=== PATIENT | female | born 1945 | race Caucasian/White ===

== ENCOUNTER 2018-08-09 18:00 | Outpatient (CLI) | payer MEDICARE | END 2018-08-09 18:01 | disposition home or self-care (01) | LOC: SLEEPLAB 18:00 | PROVIDERS: ATTEND Family Medicine | DX: G47.33 Obstructive sleep apnea (adult) (pediatric) (principal); K21.9 Gastro-esophageal reflux disease without esophagitis; I10 Essential (primary) hypertension; R53.83 Other fatigue | CPT/HCPCS: 95806 ==

== ENCOUNTER 2018-09-23 20:30 | Outpatient (CLI) | payer MEDICARE | END 2018-09-23 20:31 | disposition home or self-care (01) | LOC: SLEEPLAB 20:30 | PROVIDERS: ATTEND Family Medicine | DX: G47.33 Obstructive sleep apnea (adult) (pediatric) (principal); R53.83 Other fatigue; K21.9 Gastro-esophageal reflux disease without esophagitis; I10 Essential (primary) hypertension; R06.83 Snoring; G47.10 Hypersomnia, unspecified; Z68.34 Body mass index [BMI] 34.0-34.9, adult | CPT/HCPCS: 95811 ==

== ENCOUNTER 2018-10-10 09:31 | Outpatient (CLI) | payer MEDICARE ==
--- NOTE | 2018-10-10 11:12 | ULT ---
VENOUS DUPLEX STUDY LEFT LOWER EXTREMITY: INDICATIONS: Left lower extremity pain. Palpable area of pain and edema. TECHNIQUE: The deep veins of the left lower extremity are evaluated with color Doppler, spectral analysis, and c ompression. FINDINGS: The deep veins of the left lower extremity show normal blood flow and compression. There is no evide nce of DVT. There are dilated superficial veins seen at the area of palpable concern. No superficial thrombus id entified. IMPRESSION: No evidence of left lower extremity deep venous thrombosis. POS: C
== END 2018-10-10 09:32 | disposition home or self-care (01) ==
LOC: ULT 09:31
PROVIDERS: ATTEND Family Medicine
DX: M79.605 Pain in left leg (principal)

== ENCOUNTER 2019-07-11 11:01 | Outpatient (CLI) | payer MEDICARE ==
--- NOTE | 2019-07-11 11:25 | MMO ---
Bilateral MAMMO Bilat Screen [facility]. CLINICAL HISTORY: Patient is 73 years old and is seen for screening. The patient has no family history of breast cancer. The patient has no personal history of cancer. VIEWS: The views performed were: bilateral craniocaudal; bilateral craniocaudal with tomosynthesis; and bilateral mediolateral oblique with tomosynthesis. FILMS COMPARED: The present examination has been compared to prior imaging studies performed at [facility] on 01/27/2010, 04/27/2011, 07/01/2014 and 05/13/2016. MAMMOGRAM FINDINGS: The breasts are almost entirely fat. There are stable benign appearing calcifications seen in both breasts. There are no suspicious masses, suspicious calcifications, or new areas of architectural distortion. IMPRESSION: THERE IS NO MAMMOGRAPHIC EVIDENCE OF MALIGNANCY. A ROUTINE FOLLOW-UP MAMMOGRAM IN 1 YEAR IS RECOMMENDED. THE RESULTS OF THIS EXAM WERE SENT TO THE PATIENT. ACR BI-RADS Category 2 - Benign finding MAMMOGRAPHY NOTE: 1. A negative mammogram report should not delay a biopsy if a dominant of clinically suspicious mass is present. 2. Approximately 10% to 15% of breast cancers are not detected by mammography. 3. Adenosis and dense breasts may obscure an underlying neoplasm. Reported by: ALEJANDRINA GAN MD Electonically Signed: [id number]
== END 2019-07-11 11:02 | disposition home or self-care (01) ==
LOC: BICMAMMO 11:01
PROVIDERS: ATTEND Family Medicine
DX: Z12.31 Encounter for screening mammogram for malignant neoplasm of breast (principal)
CPT/HCPCS: 77063; 77067

== ENCOUNTER 2019-12-25 22:00 | Observation (INO) | payer MEDICARE ==
[2019-12-25 22:45] LABS: #Basophils 0.1 thou/uL (0.0-0.2); #Eosinphils 0.3 thou/uL (0.0-0.7); #Lymphocytes 3.6 thou/uL (1.20-3.40); #Monocytes 1.3 thou/uL (0.11-0.59); #Neutrophils 7.3 thou/uL (1.40-6.50); %Basophils 1.2 % (0.0-1.0); %Eosinophils 2.2 % (0.0-10.0); %Lymphocytes 28.5 % (21.0-51.0); %Monocytes 10.3 % (0.0-10.0); %Neutrophils 57.8 % (42.0-75.0); Hemoglobin 12.4 g/dL (12.0-16.0); Mean Corpuscular HGB CONC 34.3 g/dL (32.0-36.0); Mean Corpuscular Hemoglobin 30.1 pg (27.0-31.0); Mean Corpuscular Volume 87.8 fL (78.0-98.0); Mean Platelet Volume 9.7 fL (7.4-10.4); Platelet Count 239 thou/uL (130-400); RBC Distribution Width 11.8 % (11.5-14.5); Red Blood Cell (RBC) Count 4.13 mill/uL (4.20-5.40); White Blood Cell (WBC) Count 12.6 thou/uL (4.8-10.8)
[2019-12-25 23:25] LABS: ALT (SGPT) 12 U/L (8-55); AST (SGOT) 18 U/L (5-34); Albumin 4.1 g/dL (3.4-4.8); Alkaline Phosphatase 93 U/L (40-110); Anion Gap 14 mmol/L (10-20); BUN (Urea Nitrogen) 18 mg/dL (9.8-20.1); Bilirubin, Total 0.3 mg/dL (0.2-1.2); Calc. Creatinine Clearance 0 mL/min (70-130); Calcium 9.9 mg/dL (7.8-10.44); Carbon Dioxide 25 mmol/L (23-31); Chloride 99 mmol/L (98-107); Estimated GFR-MDRD 79; Globulin 3.1 g/dL (2.4-3.5); Glucose 97 mg/dL (83-110); Magnesium 1.9 mg/dL (1.6-2.6); Potassium 3.5 mmol/L (3.5-5.1); Protein, Total 7.2 g/dL (6.0-8.3); Sodium 134 mmol/L (136-145)
--- NOTE | 2019-12-25 23:31 | RAD ---
Portable frontal chest radiograph: 12/25/2019 COMPARISON: None HISTORY: Shortness of breath FINDINGS: Rounded increased density overlying the midline lower cardiac silhouette suggests hiatal he rnia. There is atherosclerotic calcification of the aortic arch with no pneumothorax or pleural fluid. No focal consolidation or alveolar edema. IMPRESSION: Portable chest radiograph as above.
[2019-12-26] MEDS ORDERED: Enoxaparin Sodium 80 MG/0.8 ML SYRINGE ONE (00:04)
[2019-12-26] MEDS ORDERED: Ondansetron ODT 4 MG TAB PO PRN (01:54)
[2019-12-26] MEDS ORDERED: Ondansetron PF 4 MG/2 ML Vial IVP PRN (01:54)
[2019-12-26] MEDS ORDERED: Acetaminophen 325 MG TAB PO PRN (01:54)
[2019-12-26] MEDS ORDERED: hydrALAZINE 20 MG/ML VIAL SLOW IVP PRN (01:54)
--- NOTE | 2019-12-26 02:37 | HP ---
PRIMARY CARE PHYSICIAN: Todd Brewer MD CHIEF COMPLAINT: "I felt my heart racing." HISTORY OF PRESENT ILLNESS: Ms. Lundy is a very pleasant 74-year-old female, who has a history of hypertension as well as atrial fibrillation. She has had an ablation at least 20 years ago[address] She sees Dr. Villalba for the atrial fibrillation. She says that she was watching TV and then noticed that her heart was beating faster. It went for longer than 30 minutes and she had been instructed by Dr. Villalba that if it lasted longer than 30 minutes to go to the ER, which she did. She also notes that she has been short of breath lately and sometimes with just minimal movement like moving around in the bed or walking. She denies any orthopnea however, and no PND. She also denies any leg swelling and denies any chest pain. She came to the ER for evaluation and was found to be in atrial fibrillation with rapid ventricular response. She was given a 20 mg bolus of Cardizem and placed on a Cardizem drip and also was given a dose of Lovenox at 1 mg/kg. Currently, she is feeling much better, had her heart rate is in the 60s. REVIEW OF SYSTEMS: All systems were reviewed and are negative except for that mentioned in the history of present illness. PAST MEDICAL HISTORY: Significant for atrial fibrillation, hypertension, and sleep apnea. PAST SURGICAL HISTORY: She had an ablation about 20 years ago. ALLERGIES: NO KNOWN DRUG ALLERGIES. SOCIAL HISTORY: She is . She has 2 children. She is a nonsmoker. She occasionally drinks wine. She would like to be a full code. Either of her children can be her surrogate decision makers. FAMILY HISTORY: No history of any heritable diseases. CURRENT MEDICATIONS: Include; 1. Aspirin, which she takes every other day. If she takes it daily, it causes her to have nosebleeds. 2. She is on valsartan 320 mg daily. 3. Flecainide 100 mg in the a.m. and 150 mg q.p.m. 4. Metoprolol 12.5 mg twice a day. 5. Pravastatin, unknown dose. 6. Maxzide 37.5/25 daily. 7. Eliquis, which she says she only takes p.r.n. 8. Pantoprazole 40 mg daily. PHYSICAL EXAMINATION: GENERAL: She is alert and oriented. She appears to be in no acute distress. She is well developed and well nourished. VITAL SIGNS: Blood pressure was 152/70, heart rate 67, respiratory rate of 24, temperature is 97.7. HEENT: Pupils are equal, round, and reactive. Extraocular muscles are intact. Her sclerae anicteric. Throat, no erythema, no exudates. NECK: No adenopathy. No bruits. LUNGS: Clear to auscultation. There is no wheezing, no rales, no rhonchi. CARDIOVASCULAR: She has a normal S1 and S2. There is no S3 or S4. No murmurs, clicks, or rubs. ABDOMEN: Obese, it is soft, nontender, and nondistended. Positive for bowel sounds. No rebound or guarding. No organomegaly. EXTREMITIES: There is no clubbing, cyanosis. No edema. NEUROLOGIC: Grossly nonfocal. SKIN AND INTEGUMENT: No skin changes. No rash. LABORATORY RESULTS: Her white blood cell count is 12.6, hemoglobin 12.4, hematocrit is 36.3, and platelet count is 239. D-dimer 0.41. Sodium 134, potassium 3.5, chloride is 99, CO2 is 25, BUN of 18, creatinine 0.72, glucose is 97. TSH was 2.3. Chest x-ray, heart size was normal. There was no evidence of any infiltrates or effusions that is by my reading. EKG, atrial fibrillation, the rate was 93. There was some poor R-wave progression in V2. ASSESSMENT: This is a pleasant 74-year-old female, who presents to the emergency room with; 1. Atrial fibrillation and rapid ventricular response. She has a history of paroxysmal atrial fibrillation. She will be admitted, continue the Cardizem drip. Get an echocardiogram and consult Cardiology for further recommendations. She has been given a dose of Lovenox in the ER. We will continue the Lovenox and then likely she can go home on Eliquis. She has been instructed on the proper use of Eliquis, which is daily for stroke prevention as it appears she was under the impression it would stop fast heart rate. 2. Hypertension. We will reconcile and restart her blood pressure medicines. 3. Sleep apnea. She can use her CPAP machine at night if she has at present. Job ID: [id number]
[2019-12-26 05:30] LABS: #Basophils 0.1 thou/uL (0.0-0.2); #Eosinphils 0.3 thou/uL (0.0-0.7); #Lymphocytes 2.8 thou/uL (1.20-3.40); #Monocytes 0.9 thou/uL (0.11-0.59); #Neutrophils 6.5 thou/uL (1.40-6.50); %Basophils 0.5 % (0.0-1.0); %Eosinophils 2.5 % (0.0-10.0); %Lymphocytes 26.2 % (21.0-51.0); %Monocytes 8.9 % (0.0-10.0); %Neutrophils 61.9 % (42.0-75.0); Hemoglobin 12.3 g/dL (12.0-16.0); Mean Corpuscular HGB CONC 34.4 g/dL (32.0-36.0); Mean Corpuscular Hemoglobin 30.4 pg (27.0-31.0); Mean Corpuscular Volume 88.3 fL (78.0-98.0); Mean Platelet Volume 8.7 fL (7.4-10.4); Platelet Count 326 thou/uL (130-400); RBC Distribution Width 11.4 % (11.5-14.5); Red Blood Cell (RBC) Count 4.05 mill/uL (4.20-5.40); White Blood Cell (WBC) Count 10.5 thou/uL (4.8-10.8)
[2019-12-26 05:51] LABS: Anion Gap 12 mmol/L (10-20); BUN (Urea Nitrogen) 15 mg/dL (9.8-20.1); Calc. Creatinine Clearance 95 mL/min (70-130); Calcium 9.6 mg/dL (7.8-10.44); Carbon Dioxide 24 mmol/L (23-31); Chloride 100 mmol/L (98-107); Estimated GFR-MDRD 89; Glucose 95 mg/dL (83-110); Potassium 3.6 mmol/L (3.5-5.1); Sodium 132 mmol/L (136-145)
[2019-12-26] MEDS ORDERED: Triamterene/Hydrochlorothiazide 37.5 mg/25 mg Tablet PO SCH (09:00)
[2019-12-26] MEDS ORDERED: Flecainide 50 MG TAB PO SCH ×2 (09:00→21:00)
[2019-12-26] MEDS ORDERED: Valsartan 80 MG TAB PO SCH (09:00)
[2019-12-26] MEDS ORDERED: Enoxaparin Sodium 80 MG/0.8 ML SYRINGE SC SCH (09:00)
[2019-12-26] MEDS ORDERED: Metoprolol Tartrate 25 MG TAB PO SCH (09:00)
[2019-12-26] MEDS ORDERED: Metoprolol Tartrate 25 MG TAB ONE (10:16)
[2019-12-26 13:34] VITALS: BMI 34.1
[2019-12-26 15:00] VITALS: BP 146/66; TEMP 98.4
--- NOTE | 2019-12-26 16:34 | CON ---
DATE OF CONSULTATION: 12/26/2019 REASON FOR CONSULTATION: Atrial fibrillation. Dr. Romel Villalba is primary noodle press operator. HISTORY OF PRESENT ILLNESS: Ms. Lundy is a 74-year-old woman, who is a patient Dr. Romel Villalba. She has a history of atrial fibrillation status post ablation several years ago. She is currently on flecainide and not on anticoagulation therapy. She recently atrial fibrillation while in the emergency room. She was given IV Cardizem and converted back to sinus. She is currently comfortable without any complaints. PAST MEDICAL HISTORY: Atrial fibrillation, hypertension, and obstructive sleep apnea. ALLERGIES: NONE. SOCIAL HISTORY: She has 2 children. She is currently . No current tobacco or alcohol use. MEDICATIONS: 1. Aspirin. 2. Valsartan. 3. Flecainide. 4. Metoprolol. 5. Pravastatin. 6. Maxzide. 7. Pantoprazole. REVIEW OF SYSTEMS: A 10-point review of systems is reviewed and is as above, otherwise negative. PHYSICAL EXAMINATION: GENERAL: Patient is a pleasant woman, who is in no acute distress. The patient appears their stated age. VITAL SIGNS: Blood pressure 146/66, pulse , and temperature afebrile. NEUROLOGIC: The patient is alert and oriented x3 with no focal neurologic deficits. HEENT: Sclerae without icterus. Mouth has moist mucous membranes with normal pallor. NECK: No JVD. Carotid upstroke brisk. No bruits bilaterally. LUNGS: Clear to auscultation with unlabored respirations. BACK: No scoliosis or kyphosis. CARDIAC: Regular rate and rhythm with normal S1 and S2. No S3 or S4 noted. No significant rubs, murmurs, thrills, or gallops noted throughout the precordium. PMI is not displaced. There is no parasternal heave. ABDOMEN: Soft, nontender, nondistended. No peritoneal signs present. No hepatosplenomegaly. No abnormal striae. EXTREMITIES: 2+ femoral and 2+ dorsalis pedis pulses. No cyanosis, clubbing, or edema. SKIN: No gross abnormalities. PERTINENT LABORATORY DATA: Hemoglobin 12.3. Creatinine 0.65. Troponin negative. TSH is 2.3. Platelet count 326. IMPRESSION: 1. Paroxysmal atrial fibrillation. 2. Hypertension. RECOMMENDATIONS: 1. Continue flecainide. 2. Add Eliquis 5 mg one p.o. b.i.d. 3. Discussed the risks and benefits of proceeding with anticoagulation therapy. I would feel more comfortable proceeding with the above. She can discuss further long-term recommendations on anticoagulation therapy with her primary noodle press operator, Dr. Romel Villalba. Otherwise, I have no further recommendations. The patient is okay for discharge. Job ID: [id number]
--- NOTE | 2019-12-27 13:31 | DIS ---
DATE OF ADMISSION: 12/26/2019 DATE OF DISCHARGE: 12/26/2019 SUPERVISOR POLISHING: Dr. Bedolla, cardiology service. HISTORY OF PRESENT ILLNESS: The patient is a 74-year-old female who was admitted to the hospital with atrial fibrillation. She noticed that her heart was racing. Apparently, she did not have any episodes of atrial fibrillation for quite some time and she follows with Dr. Villalba, polystyrene bead molder in [place]. She had ablation done approximately 20 years ago. She came to the emergency room for evaluation. She was given 20 mg bolus of Cardizem and placed on a Cardizem drip and was given a dose of Lovenox at 1 mg/kg. She converted into normal sinus rhythm. She was placed on full dose of Lovenox 1 mg/kg subcutaneous every 12 hours. She was seen by polystyrene bead molder, who recommended to start apixaban 5 mg twice daily. Apparently, she was told by her polystyrene bead molder Dr. Villalba, if the atrial fibrillation episode lasts longer than 30 minutes, she is supposed to start taking apixaban. It never did, so she never took it and today she is discharged home in good condition. She does not have much complaints to offer. PHYSICAL EXAMINATION: VITAL SIGNS: Blood pressure is 146/66, pulse is 92, respirations 18, temperature is 98.4, pulse oximetry is 99 percent on room air. GENERAL: She is seen and examined before she is discharged. DIET: She is going to stay on heart healthy diet. ACTIVITIES: As tolerated. CURRENT MEDICATIONS: At the time of discharge: 1. Apixaban 5 mg twice daily. 2. Diosmin once daily. 3. Pantoprazole 40 mg once daily. 4. Pravastatin 20 mg at bedtime. 5. Valsartan 320 mg once daily. 6. Flecainide 100 mg daily plus 150 mg at bedtime. 7. Metoprolol tartrate 12.5 mg twice daily. 8. Dyazide 1 tablet once daily. FOLLOWUP: She is going to follow up with Dr. Villalba in the next 1 or 2 weeks. Job ID: [id number]
--- NOTE | 2019-12-29 00:48 | EKG ---
Test Reason : Blood Pressure : / mmHG Vent. Rate : 093 BPM Atrial Rate : 234 BPM P-R Int : 000 ms QRS Dur : 092 ms QT Int : 362 ms P-R-T Axes : 000 018 263 degrees QTc Int : 450 ms Atrial fibrillation Septal infarct , age undetermined Abnormal ECG Confirmed by PJ BAILEY M.D. ([id number]), editor farm journal MERCEDES ALFARO ([id number]) on 12/29/2019 12:48:24 AM Referred By: Confirmed By:PJ BAILEY M.D.
== END 2019-12-26 16:57 | disposition home or self-care (01) ==
LOC: ERS 22:00 → ERHOLD 12-26 00:33 → INTOOBSV 12-26 00:33 → 2SW 12-26 13:23
PROVIDERS: ADMIT Internal Medicine; ATTEND Internal Medicine
DX: I48.0 Paroxysmal atrial fibrillation (principal); I10 Essential (primary) hypertension; G47.33 Obstructive sleep apnea (adult) (pediatric); Z79.82 Long term (current) use of aspirin; Z79.899 Other long term (current) drug therapy; Z79.01 Long term (current) use of anticoagulants; Z99.89 Dependence on other enabling machines and devices
CPT/HCPCS: 71045; 80048; 83735; 83880; 84484; 85025; 85379; 93005; 93306; 96372; 96374; 99285; G0378 ×2; 36415; 80053; 84443; J1650

== ENCOUNTER 2020-10-28 07:36 | Outpatient (CLI) | payer MEDICARE ==
--- NOTE | 2020-10-28 09:55 | RAD ---
4 views of the lumbar spine: 10/28/2020 COMPARISON: None available HISTORY: Lumbar spine pain FINDINGS: Multilevel mid and lower thoracic spine disc space narrowing with lateral and anterior oste ophyte formation noted. The lateral exam demonstrates multilevel disc space narrowing with degenerative endplate change and a nterior osteophyte formation throughout the lumbar spine, most prominent at L1-2, L2-3, L4-5, and L5-S1. On the neutral lateral examination there is retrolisthesis at L1-2 measuring 5-6 mm and at L2-3 measu ring 5-6 mm. On the extension imaging there is retrolisthesis measuring 9 mm at L1-2, 5 mm at L2-3, and 6 mm at L3-4. On flexion imaging there is retrolisthesis measuring 8 mm at L1-2 and 5 mm at L2-3. No acute fracture or dislocation is evident IMPRESSION: Prominent multilevel degenerative change within the lumbar spine as above..
--- NOTE | 2020-10-28 11:46 | MRI ---
MRI LUMBAR SPINE NONCONTRAST: DATE: 10/28/2020. HISTORY: A 74-year-old female with ICD-10: M54.5, lumbar pain (low back pain). COMPARISON: None. FINDINGS: Five lumbar-type vertebrae. Exaggerated lordosis. High-grade disk space narrowing, moderate and sev ere, at every level from T11-12 through L5-S1, with the relative exception of L3-4, where the disk sp adilene narrowing is mild to moderate. Diffuse disk bulges at every level, of varying sizes. 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 Modic type I, II, and III changes various ly at multiple levels. Conus medullaris terminates at lower L1. T12-L1: No high-grade central spinal canal stenosis. Mild bilateral neural foraminal stenosis. L1-2: Retrolisthesis of L1 on L2. Mild central spinal canal stenosis. Severe right and moderate lef t neural foraminal stenosis. L2-3: Retrolisthesis of L2 on L3. In addition to the diffuse disk bulge, there is a broad-based shea tral and bilateral paracentral disk herniation that migrates inferiorly a short distance. Moderate l igamentum flavum thickening. Distortion of spinal canal and thecal sac. Posterior epidural fat pad. Moderate central spinal canal stenosis. Moderate to severe thecal sac stenosis. Moderate to sever e right and severe left neural foraminal stenosis. L3-4: Mild to moderate right and moderate left facet DJD. Mild right and moderate to severe left ne ural foraminal stenosis. Mild central spinal canal stenosis. Posterior epidural fat pad. Moderate thecal sac stenosis. L4-5: Severe bilateral facet DJD. Minimal anterolisthesis of L4 on L5. Prominent diffuse disk bulg e. Moderate ligamentum flavum thickening. Moderate bilateral neural foraminal stenosis, left worse than right. There is distortion due to indentation upon the left L4 nerve root in the left neural fo ramen. Severe central spinal canal stenosis. L5-S1: Large diffuse disk bulge. Moderate to severe bilateral neural foraminal stenosis. Right lat eral recess stenosis with chronic impingement on right S1 nerve root at the right lateral recess by r ight facet osteophyte. Mild to moderate central spinal canal stenosis. IMPRESSION: 1. Severe lumbar spondylosis with multilevel high-grade degenerative disk disease, and lower level h igh-grade facet osteoarthrosis. 2. Multilevel moderate neural foraminal stenosis. The worst neural foraminal stenosis is on the rig ht at L1-2 (severe). 3. High-grade central spinal canal stenosis at L4-5. JN Alexys POS: JIN
== END 2020-10-28 07:37 | disposition home or self-care (01) ==
LOC: BICMRI 07:36
PROVIDERS: ATTEND Nurse Practitioner Family
DX: M54.5 Low back pain (principal); M47.816 Spondylosis without myelopathy or radiculopathy, lumbar region; M51.36 Other intervertebral disc degeneration, lumbar region; M48.061 Spinal stenosis, lumbar region without neurogenic claudication
CPT/HCPCS: 72110; 72148

== ENCOUNTER 2021-01-12 12:18 | Inpatient (IN) | payer MEDICARE ==
[2021-01-12 13:21] LABS: #Eosinphils 0.1 thou/uL (0.0-0.7); #Lymphocytes 1.7 thou/uL (1.20-3.40); #Monocytes 1.6 thou/uL (0.11-0.59); #Neutrophils 14.9 thou/uL (1.40-6.50); %Basophils 0.1 % (0.0-1.0); %Eosinophils 0.3 % (0.0-10.0); %Lymphocytes 9.2 % (21.0-51.0); %Monocytes 8.6 % (0.0-10.0); %Neutrophils 81.8 % (42.0-75.0); Hemoglobin 7.1 g/dL (12.0-16.0); Mean Corpuscular HGB CONC 30.4 g/dL (32.0-36.0); Mean Corpuscular Hemoglobin 19.3 pg (27.0-31.0); Mean Corpuscular Volume 63.5 fL (78.0-98.0); Mean Platelet Volume 8.9 fL (7.4-10.4); Platelet Count 594 thou/uL (130-400); RBC Distribution Width 16.1 % (11.5-14.5); White Blood Cell (WBC) Count 18.2 thou/uL (4.8-10.8)
[2021-01-12 13:43] LABS: ALT (SGPT) 29 U/L (8-55); AST (SGOT) 40 U/L (5-34); Albumin 3.9 g/dL (3.4-4.8); Alkaline Phosphatase 99 U/L (40-110); Anion Gap 17 mmol/L (10-20); BUN (Urea Nitrogen) 22 mg/dL (9.8-20.1); Bilirubin, Total 0.5 mg/dL (0.2-1.2); Calc. Creatinine Clearance 0 mL/min (70-130); Calcium 9.6 mg/dL (7.8-10.44); Carbon Dioxide 22 mmol/L (23-31); Chloride 94 mmol/L (98-107); Globulin 3.8 g/dL (2.4-3.5); Glucose 97 mg/dL (83-110); Potassium 3.4 mmol/L (3.5-5.1); Protein, Total 7.7 g/dL (5.8-8.1); Sodium 130 mmol/L (136-145)
[2021-01-12 13:48] LABS: Anisocytosis SLIGHT = 6-15 cells (100X) (0-5/hpf); Hypochromia SLIGHT = 6-15 cells (100X) (0-5/hpf); MDiff Complete? YES; Microcytosis MODERATE=15-30 cells (100X) (0-5/hpf); Platelet Morphology Comment Appears Increased; Polychromasia MODERATE = 3-4 cells (100X) (0-2/hpf); Reflex for Review?? YES; Target Cells SLIGHT = 2-5 cells (100X) (0-1/hpf); Tear Drops SLIGHT = 2-5 cells (100X) (0-1/hpf)
[2021-01-12 13:50] LABS: INR-International Normal Ratio 1.6; Prothrombin Time 19.2 sec (12.0-14.7)
[2021-01-12] MEDS ORDERED: Acetaminophen 325 MG TAB PO PRN (14:39)
[2021-01-12] MEDS ORDERED: Pantoprazole 40 MG VIAL IVP SCH (14:45)
[2021-01-12 14:48] LABS: Bilirubin Negative (Negative); Blood, Urine Negative (Negative); Clarity Clear (Clear); Glucose, Urine (Dipstick) Normal (Negative); Ketone, Urine Negative (Negative); Leukocyte 500 Leu/uL (Negative); Nitrite Negative (Negative); Protein, Urine (Dipstick) 20 mg/dL (Neg-Trace); RBC/HPF 0-3 HPF (0-3); Specific Gravity, Urine 1.012 (1.002-1.036); Squamous Epithelial 0-3 HPF (0-3); Urobilinogen Normal mg/dL (Less than 2)
[2021-01-12 14:53] LABS: Bacteria/HPF 1+ HPF (None Seen)
[2021-01-12] MEDS ORDERED: Pantoprazole 40 MG VIAL ONE (16:13)
[2021-01-12 17:42] VITALS: BMI 32.4
[2021-01-12] MEDS: HYDROcodone/Acetaminophen 5/325 mg Tablet PO PRN ×2 (17:45→23:35)
[2021-01-12] MEDS ORDERED: Polyethylene Glycol 3350 17 GM Packet PO PRN (18:27)
[2021-01-12] MEDS ORDERED: Potassium Chloride 20 MEQ TAB PO SCH (18:30)
[2021-01-12 18:56] LABS: Iron 21 ug/dL (50-170); Iron Binding Capacity, Total 464 mcg/dL (265-497)
[2021-01-12] MEDS: Pantoprazole 40 MG VIAL IVP SCH (19:50)
[2021-01-12] MEDS ORDERED: Iron, Sodium Ferric Gluconate 250 MG in Sodium Chloride 0.9% 100 ML IVPB SCH (20:00)
[2021-01-12] MEDS ORDERED: Flecainide 50 MG TAB PO SCH (21:00)
[2021-01-12] MEDS ORDERED: Metoprolol Tartrate 25 MG TAB PO SCH (21:00)
[2021-01-12] MEDS: Simvastatin 10 MG TAB PO SCH (22:16)
[2021-01-13 01:45] LABS: SARS-CoV-2 PCR by NAA Not Detected (NotDetected)
[2021-01-13] MEDS ORDERED: hydrALAZINE 20 MG/ML VIAL SLOW IVP SCH (03:45)
[2021-01-13 04:54] LABS: Reticulocyte Count 2.2 % (0.5-1.5)
[2021-01-13 05:05] LABS: Hemoglobin 8.3 g/dL (12.0-16.0); Hypochromia SLIGHT = 6-15 cells (100X) (0-5/hpf); Lymphocytes 14 % (21-51); MDiff Complete? YES; Mean Corpuscular HGB CONC 32.7 g/dL (32.0-36.0); Mean Corpuscular Hemoglobin 21.9 pg (27.0-31.0); Mean Corpuscular Volume 66.9 fL (78.0-98.0); Mean Platelet Volume 8.8 fL (7.4-10.4); Microcytosis MODERATE=15-30 cells (100X) (0-5/hpf); Monocytes 7 % (0-10); Neutrophil 79 % (42-75); Platelet Count 462 thou/uL (130-400); Platelet Morphology Comment Appears Increased; RBC Distribution Width 20.5 % (11.5-14.5); White Blood Cell (WBC) Count 19.8 thou/uL (4.8-10.8)
[2021-01-13 05:25] LABS: ALT (SGPT) 22 U/L (8-55); AST (SGOT) 19 U/L (5-34); Albumin 3.7 g/dL (3.4-4.8); Alkaline Phosphatase 91 U/L (40-110); Anion Gap 15 mmol/L (10-20); BUN (Urea Nitrogen) 17 mg/dL (9.8-20.1); Bilirubin, Total 0.9 mg/dL (0.2-1.2); Calc. Creatinine Clearance 68 mL/min (70-130); Calcium 9.4 mg/dL (7.8-10.44); Carbon Dioxide 21 mmol/L (23-31); Chloride 99 mmol/L (98-107); Globulin 3.1 g/dL (2.4-3.5); Glucose 81 mg/dL (83-110); Potassium 3.6 mmol/L (3.5-5.1); Protein, Total 6.8 g/dL (5.8-8.1); Sodium 131 mmol/L (136-145)
[2021-01-13] MEDS ORDERED: hydrALAZINE 20 MG/ML VIAL SLOW IVP PRN (08:10)
[2021-01-13] MEDS ORDERED: Potassium Chloride 20 MEQ TAB PO SCH (08:30)
[2021-01-13] MEDS: Amlodipine 5 MG TAB PO SCH (09:38)
[2021-01-13] MEDS: Pantoprazole 40 MG VIAL IVP SCH (09:40)
[2021-01-13] MEDS ORDERED: Spironolactone 25 MG TAB PO SCH (13:45)
[2021-01-13] MEDS: HYDROcodone/Acetaminophen 5/325 mg Tablet PO PRN (17:29)
[2021-01-13] MEDS ORDERED: Iron Sucrose Complex 200 MG in Sodium Chloride 0.9% 100 ML IVPB SCH (18:00)
[2021-01-13] MEDS: Simvastatin 10 MG TAB PO SCH (20:28)
[2021-01-14] MEDS: HYDROcodone/Acetaminophen 5/325 mg Tablet PO PRN (01:36)
[2021-01-14 04:38] LABS: Hemoglobin 8.4 g/dL (12.0-16.0); Mean Corpuscular HGB CONC 31.6 g/dL (32.0-36.0); Mean Corpuscular Hemoglobin 21.9 pg (27.0-31.0); Mean Corpuscular Volume 69.4 fL (78.0-98.0); Mean Platelet Volume 9.1 fL (7.4-10.4); Platelet Count 404 thou/uL (130-400); RBC Distribution Width 21.3 % (11.5-14.5); Red Blood Cell (RBC) Count 3.84 mill/uL (4.20-5.40); White Blood Cell (WBC) Count 16.7 thou/uL (4.8-10.8)
[2021-01-14 04:50] LABS: Anion Gap 13 mmol/L (10-20); BUN (Urea Nitrogen) 14 mg/dL (9.8-20.1); Calc. Creatinine Clearance 75 mL/min (70-130); Carbon Dioxide 23 mmol/L (23-31); Chloride 100 mmol/L (98-107); Glucose 84 mg/dL (83-110); Potassium 3.5 mmol/L (3.5-5.1); Sodium 132 mmol/L (136-145)
[2021-01-14 05:09] LABS: Anisocytosis SLIGHT = 6-15 cells (100X) (0-5/hpf); Band 4 % (5-11); Elliptocytes SLIGHT = 2-5 cells (100X) (0-1/hpf); Eosinophils 6 % (0-10); Lymphocytes 17 % (21-51); MDiff Complete? YES; Monocytes 5 % (0-10); Myelocyte 1 % (0-0); Neutrophil 67 % (42-75); Nucleated RBC 1 % (0)
[2021-01-14] MEDS ORDERED: Spironolactone 25 MG TAB PO SCH (08:00)
[2021-01-14] MEDS ORDERED: Potassium Chloride 20 MEQ TAB PO SCH ×2 (08:00→08:30)
[2021-01-14] MEDS: Amlodipine 5 MG TAB PO SCH (09:16)
[2021-01-14 09:56] VITALS: BP 179/77; TEMP 98.1
[2021-01-14] MEDS ORDERED: Triamterene/Hydrochlorothiazide 37.5 mg/25 mg Tablet PO STA (10:06)
== END 2021-01-14 11:57 | disposition home or self-care (01) | DRG 812 ==
LOC: ERS 12:18 → 2NO 14:36
PROVIDERS: ADMIT Internal Medicine; ATTEND Internal Medicine
PROC: 30233N1 Transfusion of Nonautologous Red Blood Cells into Peripheral Vein, Percutaneous Approach (ICD-10-PCS; principal; 2021-01-12)
DX: D50.0 Iron deficiency anemia secondary to blood loss (chronic) (principal); I47.2 Ventricular tachycardia; I50.32 Chronic diastolic (congestive) heart failure; I48.0 Paroxysmal atrial fibrillation; G89.29 Other chronic pain; M54.5 Low back pain; E87.6 Hypokalemia; E66.9 Obesity, unspecified; K44.9 Diaphragmatic hernia without obstruction or gangrene; I10 Essential (primary) hypertension; Z20.822 Contact with and (suspected) exposure to COVID-19; K21.9 Gastro-esophageal reflux disease without esophagitis; G47.30 Sleep apnea, unspecified; Z79.01 Long term (current) use of anticoagulants; Z90.89 Acquired absence of other organs; Z98.51 Tubal ligation status; Z68.32 Body mass index [BMI] 32.0-32.9, adult
CPT/HCPCS: 36415; 36430; 71045; 80048; 80053; 81003; 81015; 82728; 83540; 83550; 83735; 83880; 84100; 84484; 85007; 85025; 85027; 85046; 85060; 85379; 85610; 85730; 86850; 86900; 86901; 87635; 93005; 93010; 96374; C9113; J0360; J1756; J2916; J3490; P9016; U0003; U0005

== ENCOUNTER 2021-01-19 15:36 | Inpatient (IN) | payer MEDICARE ==
[2021-01-19] MEDS ORDERED: Magnesium 2 GM/50 ML BAG (IN WATER) ONE ×2 (16:09→16:12)
[2021-01-19] MEDS ORDERED: Digoxin 0.5 MG/2 ML AMP ONE (16:09)
[2021-01-19 16:11] LABS: Hemoglobin 11.7 g/dL (12.0-16.0); Mean Corpuscular HGB CONC 31.5 g/dL (32.0-36.0); Mean Corpuscular Hemoglobin 23.2 pg (27.0-31.0); Mean Corpuscular Volume 73.5 fL (78.0-98.0); Mean Platelet Volume 10.2 fL (7.4-10.4); Platelet Count 448 thou/uL (130-400); RBC Distribution Width 27.1 % (11.5-14.5); Red Blood Cell (RBC) Count 5.04 mill/uL (4.20-5.40); White Blood Cell (WBC) Count 17.4 thou/uL (4.8-10.8)
[2021-01-19 16:29] LABS: Anisocytosis MODERATE=16-30 cells (100X) (0-5/hpf); Hypochromia SLIGHT = 6-15 cells (100X) (0-5/hpf); Lymphocytes 12 % (21-51); MDiff Complete? YES; Microcytosis SLIGHT = 6-15 cells (100X) (0-5/hpf); Monocytes 5 % (0-10); Neutrophil 83 % (42-75); Ovalocytes SLIGHT = 2-5 cells (100X) (0-1/hpf); Platelet Morphology Comment Appears Increased; Polychromasia SLIGHT = 2-3 cells (100X) (0-2/hpf); Tear Drops SLIGHT = 2-5 cells (100X) (0-1/hpf)
[2021-01-19 16:48] LABS: ALT (SGPT) 23 U/L (8-55); AST (SGOT) 25 U/L (5-34); Albumin 4.2 g/dL (3.4-4.8); Alkaline Phosphatase 96 U/L (40-110); Anion Gap 16 mmol/L (10-20); BUN (Urea Nitrogen) 18 mg/dL (9.8-20.1); Bilirubin, Total 0.6 mg/dL (0.2-1.2); CK (CPK) 31 U/L (29-168); Calc. Creatinine Clearance 0 mL/min (70-130); Calcium 10.4 mg/dL (7.8-10.44); Carbon Dioxide 25 mmol/L (23-31); Chloride 96 mmol/L (98-107); Globulin 3.7 g/dL (2.4-3.5); Glucose 114 mg/dL (83-110); Lipase 19 U/L (8-78); Potassium 3.2 mmol/L (3.5-5.1); Protein, Total 7.9 g/dL (5.8-8.1); Sodium 134 mmol/L (136-145)
[2021-01-19] MEDS ORDERED: Acetaminophen 325 MG TAB PO PRN (18:23)
[2021-01-19] MEDS ORDERED: Acetaminophen 650 MG Suppository PR PRN (18:23)
[2021-01-19 18:39] LABS: Bacteria/HPF None Seen HPF (None Seen); Bilirubin Negative (Negative); Blood, Urine Negative (Negative); Clarity Clear (Clear); Glucose, Urine (Dipstick) Normal (Negative); Ketone, Urine Negative (Negative); Leukocyte 250 Leu/uL (Negative); Nitrite Negative (Negative); Protein, Urine (Dipstick) Negative (Neg-Trace); RBC/HPF 0-3 HPF (0-3); Specific Gravity, Urine 1.011 (1.002-1.036); Squamous Epithelial 0-3 HPF (0-3); Urobilinogen Normal mg/dL (Less than 2); pH, Urine 6.5 (5.0-9.0)
[2021-01-19 19:48] LABS: Troponin I 0.035 ng/mL (< 0.028)
[2021-01-19] MEDS ORDERED: Famotidine 20 MG TAB PO SCH (21:00)
[2021-01-19 21:27] VITALS: BMI 32.0
[2021-01-19 22:57] LABS: Troponin I 0.031 ng/mL (< 0.028)
[2021-01-20] MEDS ORDERED: HYDROcodone/Acetaminophen 10/325 mg Tablet PO PRN (02:34)
[2021-01-20 05:39] LABS: #Eosinphils 0.2 thou/uL (0.0-0.7); #Lymphocytes 2.1 thou/uL (1.20-3.40); #Monocytes 1.2 thou/uL (0.11-0.59); #Neutrophils 10.6 thou/uL (1.40-6.50); %Basophils 0.3 % (0.0-1.0); %Eosinophils 1.6 % (0.0-10.0); %Lymphocytes 14.9 % (21.0-51.0); %Monocytes 8.3 % (0.0-10.0); %Neutrophils 74.9 % (42.0-75.0); Mean Corpuscular HGB CONC 32.3 g/dL (32.0-36.0); Mean Corpuscular Hemoglobin 23.9 pg (27.0-31.0); Mean Corpuscular Volume 74.1 fL (78.0-98.0); Mean Platelet Volume 9.9 fL (7.4-10.4); Platelet Count 361 thou/uL (130-400); RBC Distribution Width 26.8 % (11.5-14.5); Red Blood Cell (RBC) Count 4.18 mill/uL (4.20-5.40); White Blood Cell (WBC) Count 14.1 thou/uL (4.8-10.8)
[2021-01-20 05:48] LABS: Anion Gap 13 mmol/L (10-20); BUN (Urea Nitrogen) 17 mg/dL (9.8-20.1); Calc. Creatinine Clearance 88 mL/min (70-130); Calcium 9.1 mg/dL (7.8-10.44); Carbon Dioxide 26 mmol/L (23-31); Chloride 101 mmol/L (98-107); Glucose 88 mg/dL (83-110); Potassium 3.5 mmol/L (3.5-5.1); Sodium 136 mmol/L (136-145)
[2021-01-20] MEDS ORDERED: Amlodipine 5 MG TAB PO SCH (09:00)
[2021-01-20] MEDS ORDERED: Aspirin 81 mg Enteric Coated Tablet PO SCH (09:00)
[2021-01-20] MEDS ORDERED: Morphine 2 MG/ML VIAL SLOW IVP PRN (10:21)
[2021-01-20] MEDS ORDERED: Morphine 2 MG/ML VIAL SLOW IVP SCH (10:30)
[2021-01-20] MEDS: Ferrous Sulfate 325 MG TAB PO SCH ×2 (11:07→19:32)
[2021-01-20 11:26] VITALS: TEMP 98
[2021-01-20 16:00] VITALS: BP 167/72
[2021-01-20] MEDS ORDERED: Simvastatin 5 MG TAB PO SCH (21:00)
[2021-01-21] MEDS ORDERED: Dronedarone HCl 400 MG TAB PO SCH (08:00)
== END 2021-01-20 18:31 | disposition home or self-care (01) | DRG 309 ==
LOC: ERS 15:36 → ERHOLD 17:15 → 2NO 21:08
PROVIDERS: ADMIT Internal Medicine; ATTEND Internal Medicine
DX: I48.91 Unspecified atrial fibrillation (principal); E87.1 Hypo-osmolality and hyponatremia; E87.8 Other disorders of electrolyte and fluid balance, not elsewhere classified; I10 Essential (primary) hypertension; E66.9 Obesity, unspecified; E87.6 Hypokalemia; Z68.32 Body mass index [BMI] 32.0-32.9, adult
CPT/HCPCS: 36415; 71045; 80048; 81003; 81015; 82550; 83605; 83690; 83735; 83880; 84484; 85025; 93005; 93306; 96365; 96375; J1160; J2270; J3475

== ENCOUNTER 2021-02-15 15:44 | Outpatient (CLI) | payer MEDICARE | END 2021-02-15 15:45 | disposition home or self-care (01) | LOC: BICRAD 15:44 | PROVIDERS: ATTEND Nurse Practitioner Family | DX: M54.2 Cervicalgia (principal); M47.812 Spondylosis without myelopathy or radiculopathy, cervical region | CPT/HCPCS: 72050 ==

== ENCOUNTER 2021-05-11 17:30 | Outpatient (CLI) | payer MEDICARE | END 2021-05-11 17:31 | disposition home or self-care (01) | LOC: SLEEPLAB 17:30 | PROVIDERS: ATTEND Internal Medicine Critical Care Medicine | DX: G47.33 Obstructive sleep apnea (adult) (pediatric) (principal); R09.89 Other specified symptoms and signs involving the circulatory and respiratory systems; R06.83 Snoring; I48.91 Unspecified atrial fibrillation; G47.00 Insomnia, unspecified; I47.1 Supraventricular tachycardia; I10 Essential (primary) hypertension | CPT/HCPCS: 95806 ==

== ENCOUNTER 2021-08-13 19:00 | Outpatient (CLI) | payer MEDICARE | END 2021-08-13 19:01 | disposition home or self-care (01) | LOC: SLEEPLAB 19:00 | PROVIDERS: ATTEND Internal Medicine Critical Care Medicine | DX: G47.33 Obstructive sleep apnea (adult) (pediatric) (principal); R06.83 Snoring; R09.89 Other specified symptoms and signs involving the circulatory and respiratory systems; G47.10 Hypersomnia, unspecified; E66.9 Obesity, unspecified; Z68.34 Body mass index [BMI] 34.0-34.9, adult | CPT/HCPCS: 95811 ==

== ENCOUNTER 2022-03-25 10:00 | Outpatient (CLI) | payer MEDICARE ==
[2022-03-25 11:47] LABS: Hemoglobin 14.1 g/dL (12.0-15.5); Mean Corpuscular HGB CONC 33.6 g/dL (32.0-36.0); Mean Corpuscular Volume 86.2 fl (81.6-98.3); Mean Platelet Volume 10.3 fl (7.4-10.4); Platelet Count 511 10x3/uL (150-450); RBC Distribution Width 12.5 % (11.5-14.5); Red Blood Cell (RBC) Count 4.87 10x6/uL (3.90-5.03); White Blood Cell (WBC) Count 7.8 10x3/uL (3.5-10.5)
[2022-03-25 12:05] LABS: INR-International Normal Ratio 1.1; PTT 32.3 sec (22.0-33.0); Prothrombin Time 11.8 sec (9.5-12.1)
[2022-03-25 12:11] LABS: Anion Gap 15 mmol/L (10-20); BUN (Urea Nitrogen) 13 mg/dL (9.8-20.1); Calc. Creatinine Clearance 0 mL/min (70-130); Calcium 10.2 mg/dL (7.8-10.44); Carbon Dioxide 26 mmol/L (23-31); Chloride 96 mmol/L (98-107); Glucose 86 mg/dL (83-110); Potassium 4.5 mmol/L (3.5-5.1); Sodium 132 mmol/L (136-145)
[2022-03-25 21:29] LABS: SARS-CoV-2 PCR by NAA Not Detected (NotDetected)
== END 2022-03-25 10:01 | disposition home or self-care (01) ==
LOC: LABBT 10:00
PROVIDERS: ATTEND Internal Medicine Cardiovascular Disease
DX: Z01.812 Encounter for preprocedural laboratory examination (principal); I48.19 Other persistent atrial fibrillation; Z20.822 Contact with and (suspected) exposure to COVID-19
CPT/HCPCS: 80048; 85027; 85610; 85730; U0003; U0005

== ENCOUNTER 2022-03-30 05:54 | Day surgery (SDC) | payer MEDICARE ==
[2022-03-29 14:14] VITALS: BMI 33.1
[2022-03-30] MEDS ORDERED: Heparin 10,000 UNITS/ 10 ML VIAL ONE (07:11)
[2022-03-30] MEDS ORDERED: Isoproterenol 0.2 MG/1 ML AMP ONE (07:11)
[2022-03-30] MEDS ORDERED: Protamine Sulfate 50 MG/5 ML VIAL ONE (07:11)
[2022-03-30] MEDS ORDERED: Heparin 25,000 units/D5W 500 ML ONE (07:11)
[2022-03-30] MEDS ORDERED: Midazolam HCl 2 mg/2 ml Vial ONE (08:19)
[2022-03-30] MEDS ORDERED: Fentanyl 100 MCG/2 ML VIAL ONE (08:19)
[2022-03-30] MEDS ORDERED: Ondansetron PF 4 MG/2 ML Vial ONE (08:23)
[2022-03-30] MEDS ORDERED: Lidocaine 1% PF 5 ML VIAL ONE (08:23)
[2022-03-30] MEDS ORDERED: PROPOFOL 200 MG/20 ML VIAL ONE (08:23)
[2022-03-30] MEDS ORDERED: Dexamethasone 20 MG/5 ML VIAL ONE (08:23)
[2022-03-30] MEDS ORDERED: PHENYLEPHRINE-NS 100 MCG/ML 10 ML SYRINGE ONE ×2 (08:23→08:49)
[2022-03-30] MEDS ORDERED: Rocuronium Bromide 10 MG/ML (10ML VIAL) ONE (08:23)
[2022-03-30] MEDS ORDERED: Glycopyrrolate 0.2 MG/ML 5 ML SYRINGE ONE (08:23)
[2022-03-30] MEDS ORDERED: Phenylephrine 10 MG/ML VIAL ONE (09:26)
[2022-03-30] MEDS ORDERED: SUGAMMADEX SODIUM 200 MG/2 ML VIAL ONE (12:16)
[2022-03-30] MEDS ORDERED: Ketorolac Tromethamine 30 MG/ML VIAL ONE (14:29)
== END 2022-03-30 17:08 | disposition home or self-care (01) ==
LOC: SDC 05:54
PROVIDERS: ATTEND Internal Medicine Cardiovascular Disease
PROC: 02583ZZ Destruction of Conduction Mechanism, Percutaneous Approach (ICD-10-PCS; principal; 2022-03-30)
PROC: 02K83ZZ Map Conduction Mechanism, Percutaneous Approach (ICD-10-PCS; 2022-03-30)
PROC: 4A023FZ Measurement of Cardiac Rhythm, Percutaneous Approach (ICD-10-PCS; 2022-03-30)
PROC: 4A0234Z Measurement of Cardiac Electrical Activity, Percutaneous Approach (ICD-10-PCS; 2022-03-30)
DX: I48.19 Other persistent atrial fibrillation (principal); I48.92 Unspecified atrial flutter; I11.9 Hypertensive heart disease without heart failure; I87.2 Venous insufficiency (chronic) (peripheral); G47.33 Obstructive sleep apnea (adult) (pediatric); Z86.16 Personal history of COVID-19; Z79.01 Long term (current) use of anticoagulants; Z79.899 Other long term (current) drug therapy
CPT/HCPCS: 85347 ×2; 93005; 93613; 93623; 93655; 93656; 93662; C1730; C1732; C1759; C1760; J1100; J1644; J1885; J2250; J2370; J2405; J2704; J2720; J3010

== ENCOUNTER 2022-04-02 10:06 | Observation (INO) | payer MEDICARE ==
[2022-04-02 10:49] LABS: #Basophils 0.1 thou/uL (0.0-0.2); #Eosinphils 0.3 thou/uL (0.0-0.7); #Lymphocytes 2.5 thou/uL (1.20-3.40); #Monocytes 1.6 thou/uL (0.11-0.59); #Neutrophils 6.7 thou/uL (1.40-6.50); %Basophils 0.5 % (0.0-1.0); %Eosinophils 2.6 % (0.0-10.0); %Lymphocytes 22.3 % (21.0-51.0); %Monocytes 14.1 % (0.0-10.0); %Neutrophils 60.5 % (42.0-75.0); Hemoglobin 12.7 g/dL (12.0-16.0); Mean Corpuscular HGB CONC 33.9 g/dL (32.0-36.0); Mean Corpuscular Hemoglobin 30.2 pg (27.0-31.0); Mean Corpuscular Volume 89.1 fL (78.0-98.0); Mean Platelet Volume 7.4 fL (7.4-10.4); Platelet Count 356 thou/uL (130-400); RBC Distribution Width 11.8 % (11.5-14.5); White Blood Cell (WBC) Count 11.1 thou/uL (4.8-10.8)
[2022-04-02 11:08] LABS: ALT (SGPT) 12 U/L (8-55); AST (SGOT) 19 U/L (5-34); Albumin 3.8 g/dL (3.4-4.8); Alkaline Phosphatase 72 U/L (40-110); Anion Gap 12 mmol/L (10-20); BUN (Urea Nitrogen) 16 mg/dL (9.8-20.1); Bilirubin, Total 0.6 mg/dL (0.2-1.2); Calc. Creatinine Clearance 0 mL/min (70-130); Calcium 9.5 mg/dL (7.8-10.44); Carbon Dioxide 27 mmol/L (23-31); Chloride 93 mmol/L (98-107); Globulin 3.3 g/dL (2.4-3.5); Glucose 92 mg/dL (83-110); Magnesium 1.7 mg/dL (1.6-2.6); Potassium 3.4 mmol/L (3.5-5.1); Protein, Total 7.1 g/dL (5.8-8.1); Sodium 129 mmol/L (136-145)
[2022-04-02] MEDS ORDERED: Ondansetron ODT 4 MG TAB PO PRN (14:37)
[2022-04-02] MEDS ORDERED: Acetaminophen 325 MG TAB PO PRN (14:37)
[2022-04-02] MEDS ORDERED: Potassium Chloride 20 MEQ TAB PO SCH (15:30)
[2022-04-02 16:03] VITALS: BMI 33.0
[2022-04-02] MEDS ORDERED: Potassium Chloride 20 MEQ TAB PO PRN (18:49)
[2022-04-02] MEDS ORDERED: Simvastatin 10 MG TAB PO SCH (21:00)
[2022-04-02] MEDS: Apixaban 5 MG TAB PO SCH (21:15)
[2022-04-02] MEDS: Sucralfate 1 GM TAB PO SCH (21:16)
[2022-04-02] MEDS: Hydrochlorothiazide 25 MG TAB PO SCH (21:16)
[2022-04-02] MEDS: Valsartan 80 MG TAB PO SCH (21:17)
[2022-04-03 05:12] LABS: #Eosinphils 0.3 thou/uL (0.0-0.7); #Lymphocytes 2.3 thou/uL (1.20-3.40); #Monocytes 1.1 thou/uL (0.11-0.59); #Neutrophils 6.2 thou/uL (1.40-6.50); %Basophils 0.5 % (0.0-1.0); %Eosinophils 2.9 % (0.0-10.0); %Lymphocytes 22.9 % (21.0-51.0); %Monocytes 11.5 % (0.0-10.0); %Neutrophils 62.2 % (42.0-75.0); Hemoglobin 12.2 g/dL (12.0-16.0); Mean Corpuscular Volume 90.8 fL (78.0-98.0); Mean Platelet Volume 7.4 fL (7.4-10.4); Platelet Count 355 thou/uL (130-400); Red Blood Cell (RBC) Count 4.08 mill/uL (4.20-5.40); White Blood Cell (WBC) Count 9.9 thou/uL (4.8-10.8)
[2022-04-03 05:30] LABS: Anion Gap 10 mmol/L (10-20); BUN (Urea Nitrogen) 11 mg/dL (9.8-20.1); Calc. Creatinine Clearance 92 mL/min (70-130); Calcium 9.6 mg/dL (7.8-10.44); Carbon Dioxide 29 mmol/L (23-31); Chloride 97 mmol/L (98-107); Glucose 88 mg/dL (83-110); Sodium 132 mmol/L (136-145)
[2022-04-03] MEDS: Sucralfate 1 GM TAB PO SCH ×2 (06:42→11:09)
[2022-04-03] MEDS ORDERED: Triamterene/Hydrochlorothiazide 37.5 mg/25 mg Tablet PO SCH (09:00)
[2022-04-03] MEDS ORDERED: Aspirin 81 mg Enteric Coated Tablet PO SCH (09:00)
[2022-04-03] MEDS ORDERED: Lansoprazole 3 MG/ML ORAL SUSPENSION PO SCH (09:00)
[2022-04-03] MEDS ORDERED: Furosemide 40 MG TAB PO SCH (09:00)
[2022-04-03] MEDS ORDERED: Potassium Chloride 20 MEQ TAB PO SCH (09:30)
[2022-04-03] MEDS: Apixaban 5 MG TAB PO SCH (09:45)
[2022-04-03] MEDS ORDERED: Magnesium Sulfate 4 GM in Sodium Chloride 0.9% 250 ML 250 ML IVPB SCH (10:00)
[2022-04-03] MEDS: Hydrochlorothiazide 25 MG TAB PO SCH (10:04)
[2022-04-03] MEDS: Valsartan 80 MG TAB PO SCH (10:04)
[2022-04-03 11:54] VITALS: BP 124/62; TEMP 97.6
== END 2022-04-03 13:23 | disposition home or self-care (01) ==
LOC: ERS 10:06 → 2SW 14:41
PROVIDERS: ADMIT Internal Medicine; ATTEND Internal Medicine
DX: I48.92 Unspecified atrial flutter (principal); E87.1 Hypo-osmolality and hyponatremia; E87.6 Hypokalemia; E83.42 Hypomagnesemia; I10 Essential (primary) hypertension; G47.33 Obstructive sleep apnea (adult) (pediatric); I48.21 Permanent atrial fibrillation; I87.2 Venous insufficiency (chronic) (peripheral); M48.00 Spinal stenosis, site unspecified; K44.9 Diaphragmatic hernia without obstruction or gangrene; D72.829 Elevated white blood cell count, unspecified; E66.9 Obesity, unspecified; Z68.33 Body mass index [BMI] 33.0-33.9, adult; Z79.01 Long term (current) use of anticoagulants; Z79.82 Long term (current) use of aspirin; Z79.899 Other long term (current) drug therapy; Z20.822 Contact with and (suspected) exposure to COVID-19
CPT/HCPCS: 71045; 80048; 80053; 83735; 85025 ×2; 93005; 96374; 96376; 99285; U0003; U0005; 36415; 96375; G0378; J3475; J7050

== ENCOUNTER 2022-06-13 07:50 | Outpatient (CLI) | payer MEDICARE ==
[2022-06-13] MEDS ORDERED: Iopamidol 370 76% 100 ML VIAL ONE (15:37)
== END 2022-06-13 07:51 | disposition home or self-care (01) ==
LOC: CT 07:50
PROVIDERS: ATTEND Internal Medicine Cardiovascular Disease
DX: I27.20 Pulmonary hypertension, unspecified (principal); K80.20 Calculus of gallbladder without cholecystitis without obstruction; K44.9 Diaphragmatic hernia without obstruction or gangrene
CPT/HCPCS: 71275; 74174; 82565; Q9967

== ENCOUNTER 2022-07-13 11:30 | Outpatient (CLI) | payer MEDICARE | END 2022-07-13 11:31 | disposition home or self-care (01) | LOC: RAD 11:30 | PROVIDERS: ATTEND Internal Medicine Critical Care Medicine | DX: R06.09 Other forms of dyspnea (principal); K44.9 Diaphragmatic hernia without obstruction or gangrene | CPT/HCPCS: 71046 ==

== ENCOUNTER 2022-11-03 09:16 | Inpatient (IN) | payer MEDICARE ==
[2022-11-02 09:44] VITALS: BMI 30.9
[2022-11-03] MEDS ORDERED: Acetaminophen 500 MG TAB ONE (10:03)
[2022-11-03] MEDS ORDERED: diphenhydrAMINE 25 MG CAP PO PRN (11:25)
[2022-11-03] MEDS ORDERED: Acetaminophen/Codeine 30-300mg Tablet PO PRN (11:25)
[2022-11-03] MEDS ORDERED: Morphine 2 MG/ML VIAL SLOW IVP PRN (11:25)
[2022-11-03] MEDS ORDERED: hydrALAZINE 20 MG/ML VIAL SLOW IVP PRN (11:27)
[2022-11-03] MEDS ORDERED: Albumin 5% 500 ML ONE (11:40)
[2022-11-03] MEDS ORDERED: Fentanyl 250 MCG/5 ML VIAL ONE (11:40)
[2022-11-03] MEDS ORDERED: Ketamine 50 MG/ML (10ML VIAL) ONE (11:40)
[2022-11-03] MEDS ORDERED: SUGAMMADEX SODIUM 200 MG/2 ML VIAL ONE (11:40)
[2022-11-03] MEDS ORDERED: Phenylephrine 10 MG/ML VIAL ONE (11:41)
[2022-11-03] MEDS ORDERED: Thrombin 5000 UNITS/5 ML VIAL ONE ×2 (11:42→13:37)
[2022-11-03] MEDS ORDERED: Vancomycin 1 GM VIAL ONE (11:42)
[2022-11-03] MEDS ORDERED: CEFAZOLIN 2 GM VIAL ONE (11:49)
[2022-11-03] MEDS ORDERED: Sodium Chloride 0.9% 100 ML ONE (11:49)
[2022-11-03] MEDS ORDERED: PROPOFOL 200 MG/20 ML VIAL ONE (12:00)
[2022-11-03] MEDS ORDERED: Ketorolac Tromethamine 30 MG/ML VIAL ONE (12:00)
[2022-11-03] MEDS ORDERED: Lidocaine 1% PF 5 ML VIAL ONE (12:00)
[2022-11-03] MEDS ORDERED: Ondansetron PF 4 MG/2 ML Vial ONE (12:00)
[2022-11-03] MEDS ORDERED: Rocuronium Bromide 10 MG/ML (10ML VIAL) ONE (12:00)
[2022-11-03] MEDS ORDERED: NEOSTIGMINE 3 MG/3 ML SYR 3 MG/3 ML SYRINGE ONE (12:00)
[2022-11-03] MEDS ORDERED: Vecuronium 10 MG VIAL ONE (12:00)
[2022-11-03] MEDS ORDERED: Glycopyrrolate 0.2 MG/ML 5 ML SYRINGE ONE (12:00)
[2022-11-03] MEDS ORDERED: Dexamethasone 20 MG/5 ML VIAL ONE (12:00)
[2022-11-03] MEDS ORDERED: Morphine 4 MG/ML VIAL SLOW IVP PRN (12:05)
[2022-11-03] MEDS ORDERED: CEFAZOLIN 2 GM in Sodium Chloride 0.9% 100 ML IVPB SCH (15:00)
[2022-11-03] MEDS ORDERED: Fentanyl 100 MCG/2 ML VIAL ONE (15:18)
[2022-11-03] MEDS: CEFAZOLIN 2 GM in Sodium Chloride 0.9% 100 ML IVPB SCH (20:56)
[2022-11-03] MEDS ORDERED: Pravastatin Sodium 20 MG TAB PO SCH (21:00)
[2022-11-03] MEDS: traMADol HCl 50 MG TAB PO PRN (21:07)
[2022-11-03] MEDS: Sodium Chloride 0.9% 1,000 ML IV SCH (21:09)
[2022-11-03] MEDS: Simvastatin 5 MG TAB PO SCH (21:09)
[2022-11-04] MEDS: CEFAZOLIN 2 GM in Sodium Chloride 0.9% 100 ML IVPB SCH ×3 (03:54→21:00)
[2022-11-04] MEDS: Sodium Chloride 0.9% 1,000 ML IV SCH ×2 (05:17→15:01)
[2022-11-04 06:17] LABS: #Lymphocytes 0.7 thou/uL (1.20-3.40); #Monocytes 1.2 thou/uL (0.11-0.59); %Basophils 0.1 % (0.0-1.0); %Lymphocytes 5.4 % (21.0-51.0); %Monocytes 9.6 % (0.0-10.0); %Neutrophils 84.9 % (42.0-75.0); Mean Corpuscular HGB CONC 32.4 g/dL (32.0-36.0); Mean Corpuscular Hemoglobin 25.5 pg (27.0-31.0); Mean Corpuscular Volume 78.6 fl (78.0-98.0); Mean Platelet Volume 8.3 fL (7.4-10.4); Platelet Count 273 10x3/uL (130-400); RBC Distribution Width 14.4 % (11.5-14.5); Red Blood Cell (RBC) Count 3.53 mill/uL (4.20-5.40); White Blood Cell (WBC) Count 12.9 10x3/uL (4.8-10.8)
[2022-11-04 06:34] LABS: Anion Gap 9 mmol/L (10-20); BUN (Urea Nitrogen) 8 mg/dL (9.8-20.1); Calc. Creatinine Clearance 92 mL/min (70-130); Calcium 8.7 mg/dL (7.8-10.44); Carbon Dioxide 25 mmol/L (23-31); Chloride 97 mmol/L (98-107); Estimated GFR 94; Glucose 102 mg/dL (83-110); Potassium 3.1 mmol/L (3.5-5.1); Sodium 128 mmol/L (136-145)
[2022-11-04] MEDS: traMADol HCl 50 MG TAB PO PRN ×2 (08:50→16:23)
[2022-11-04] MEDS: Triamterene/Hydrochlorothiazide 37.5 mg/25 mg Tablet PO SCH (08:50)
[2022-11-04] MEDS ORDERED: ceFAZolin 2 GM/Dextrose 50 ML 2 GM in Premix Bag 1 BAG IVPB SCH (09:00)
[2022-11-04] MEDS ORDERED: Non-Formulary Item 1 EACH (Triamterene/Hydrochlorothiazid [Triamterene-Hctz 37.5-25 Mg Cp PO SCH (09:00)
[2022-11-04] MEDS ORDERED: CEFAZOLIN 2 GM in Sodium Chloride 0.9% 100 ML IVPB SCH (12:00)
[2022-11-04] MEDS: HYDROcodone/Acetaminophen 10/325 mg Tablet PO PRN (20:58)
[2022-11-04] MEDS: Simvastatin 5 MG TAB PO SCH (21:00)
[2022-11-05] MEDS: traMADol HCl 50 MG TAB PO PRN (03:35)
[2022-11-05] MEDS: Sodium Chloride 0.9% 1,000 ML IV SCH ×2 (03:36→13:52)
[2022-11-05] MEDS: CEFAZOLIN 2 GM in Sodium Chloride 0.9% 100 ML IVPB SCH ×2 (05:26→13:52)
[2022-11-05] MEDS: Triamterene/Hydrochlorothiazide 37.5 mg/25 mg Tablet PO SCH (08:18)
[2022-11-05] MEDS: Acetaminophen 325 MG TAB PO PRN (11:13)
[2022-11-05] MEDS: HYDROcodone/Acetaminophen 10/325 mg Tablet PO PRN (11:50)
[2022-11-05] MEDS: Ondansetron PF 4 MG/2 ML Vial IVP PRN ×2 (16:02→17:28)
[2022-11-05] MEDS ORDERED: Ondansetron HCl/PF 8 MG in Sodium Chloride 0.9% 50 ML IVPB PRN (17:56)
[2022-11-05] MEDS ORDERED: Metoprolol Tartrate 5 MG/5 ML VIAL IVP SCH (19:07)
[2022-11-05] MEDS ORDERED: Promethazine 25 MG TAB PO PRN (19:25)
[2022-11-05] MEDS ORDERED: Promethazine 25 MG TAB PO SCH (19:30)
[2022-11-05 19:35] LABS: Hemoglobin 11.2 g/dL (12.0-16.0); Mean Corpuscular HGB CONC 33.1 g/dL (32.0-36.0); Mean Corpuscular Hemoglobin 25.8 pg (27.0-31.0); Mean Corpuscular Volume 77.9 fl (78.0-98.0); Mean Platelet Volume 8.1 fL (7.4-10.4); Platelet Count 328 10x3/uL (130-400); RBC Distribution Width 14.9 % (11.5-14.5); Red Blood Cell (RBC) Count 4.36 mill/uL (4.20-5.40); White Blood Cell (WBC) Count 20.9 10x3/uL (4.8-10.8)
[2022-11-05 19:49] LABS: Band 4 % (5-11); Hypochromia SLIGHT = 6-15 cells (100X) (0-5/hpf); MDiff Complete? YES; Monocytes 9 % (0-10); Neutrophil 87 % (42-75); Platelet Morphology Comment Appears Adequate
[2022-11-05 19:58] LABS: Anion Gap 13 mmol/L (10-20); BUN (Urea Nitrogen) 6 mg/dL (9.8-20.1); Calc. Creatinine Clearance 111 mL/min (70-130); Calcium 8.7 mg/dL (7.8-10.44); Carbon Dioxide 22 mmol/L (23-31); Chloride 88 mmol/L (98-107); Estimated GFR 99; Glucose 101 mg/dL (83-110); Sodium 120 mmol/L (136-145)
[2022-11-05 20:24] LABS: Potassium 2.6 mmol/L (3.5-5.1)
[2022-11-05] MEDS: Simvastatin 5 MG TAB PO SCH (20:58)
[2022-11-05] MEDS ORDERED: Electrolyte Replacement Protocol 1 EACH FS SCH (21:30)
[2022-11-05 22:05] LABS: Magnesium 1.6 mg/dL (1.6-2.6)
[2022-11-05] MEDS: Potassium Chloride 20 MEQ TAB PO SCH ×2 (22:28→22:46)
[2022-11-05] MEDS: Potassium Chloride 20 MEQ in Premix Bag 1 BAG IVPB SCH (23:25)
[2022-11-05] MEDS ORDERED: Magnesium 2 GM/50 ML(in water) 2 GM in Premix Bag 1 BAG IVPB SCH (23:59)
[2022-11-06] MEDS ORDERED: Potassium Chloride 20 MEQ TAB PO SCH ×2 (01:30→08:00)
[2022-11-06] MEDS: Potassium Chloride 20 MEQ in Premix Bag 1 BAG IVPB SCH (03:30)
[2022-11-06 05:27] LABS: #Lymphocytes 1.4 thou/uL (1.20-3.40); #Monocytes 1.5 thou/uL (0.11-0.59); #Neutrophils 16.6 thou/uL (1.40-6.50); %Eosinophils 0.1 % (0.0-10.0); %Lymphocytes 7.3 % (21.0-51.0); %Monocytes 7.9 % (0.0-10.0); %Neutrophils 84.7 % (42.0-75.0); Mean Corpuscular HGB CONC 32.9 g/dL (32.0-36.0); Mean Corpuscular Volume 79.1 fl (78.0-98.0); Mean Platelet Volume 8.2 fL (7.4-10.4); Platelet Count 348 10x3/uL (130-400); RBC Distribution Width 14.9 % (11.5-14.5); Red Blood Cell (RBC) Count 4.24 mill/uL (4.20-5.40); White Blood Cell (WBC) Count 19.6 10x3/uL (4.8-10.8)
[2022-11-06] MEDS: Sodium Chloride 0.9% 1,000 ML IV SCH ×2 (06:12→10:09)
[2022-11-06 06:33] LABS: Anion Gap 12 mmol/L (10-20); BUN (Urea Nitrogen) 7 mg/dL (9.8-20.1); Calc. Creatinine Clearance 95 mL/min (70-130); Calcium 8.8 mg/dL (7.8-10.44); Carbon Dioxide 27 mmol/L (23-31); Chloride 88 mmol/L (98-107); Estimated GFR 95; Glucose 87 mg/dL (83-110); Magnesium 2.2 mg/dL (1.6-2.6); Potassium 3.2 mmol/L (3.5-5.1); Sodium 124 mmol/L (136-145)
[2022-11-06] MEDS ORDERED: Potassium Bicarbonate/Cit Ac 20 MEQ TAB PO SCH (08:00)
[2022-11-06] MEDS: Lisinopril 20 MG TAB PO SCH (10:09)
[2022-11-06] MEDS ORDERED: Bisacodyl 10 MG SUPP PR SCH (13:45)
[2022-11-06 14:21] LABS: Anion Gap 10 mmol/L (10-20); BUN (Urea Nitrogen) 9 mg/dL (9.8-20.1); Calc. Creatinine Clearance 99 mL/min (70-130); Calcium 8.9 mg/dL (7.8-10.44); Carbon Dioxide 27 mmol/L (23-31); Chloride 91 mmol/L (98-107); Estimated GFR 96; Glucose 92 mg/dL (83-110); Sodium 125 mmol/L (136-145)
[2022-11-06] MEDS ORDERED: Potassium Bicarbonate/Cit Ac 20 MEQ TAB PER TUBE SCH (21:30)
[2022-11-06] MEDS: Senokot S 8.6-50 MG TAB PO SCH (21:36)
[2022-11-06] MEDS: Simvastatin 5 MG TAB PO SCH (21:36)
[2022-11-07] MEDS: Acetaminophen 325 MG TAB PO PRN ×2 (04:22→08:58)
[2022-11-07 05:57] LABS: Anion Gap 10 mmol/L (10-20); BUN (Urea Nitrogen) 12 mg/dL (9.8-20.1); Calc. Creatinine Clearance 113 mL/min (70-130); Calcium 8.7 mg/dL (7.8-10.44); Carbon Dioxide 31 mmol/L (23-31); Chloride 89 mmol/L (98-107); Estimated GFR 99; Glucose 97 mg/dL (83-110); Potassium 3.7 mmol/L (3.5-5.1); Sodium 126 mmol/L (136-145)
[2022-11-07] MEDS: Gabapentin 300 MG CAP PO SCH ×3 (08:37→21:36)
[2022-11-07] MEDS: Senokot S 8.6-50 MG TAB PO SCH ×2 (08:50→21:37)
[2022-11-07] MEDS: Lisinopril 20 MG TAB PO SCH (08:50)
[2022-11-07] MEDS ORDERED: Dexamethasone 10 MG/ML VIAL SLOW IVP SCH (09:00)
[2022-11-07 14:04] LABS: Anion Gap 11 mmol/L (10-20); BUN (Urea Nitrogen) 12 mg/dL (9.8-20.1); Calc. Creatinine Clearance 99 mL/min (70-130); Calcium 9.5 mg/dL (7.8-10.44); Carbon Dioxide 29 mmol/L (23-31); Chloride 91 mmol/L (98-107); Estimated GFR 96; Glucose 158 mg/dL (83-110); Sodium 127 mmol/L (136-145)
[2022-11-07] MEDS: Dexamethasone 4 MG TAB PO SCH ×2 (14:27→21:37)
[2022-11-07] MEDS: Simvastatin 5 MG TAB PO SCH (21:37)
[2022-11-08] MEDS: Dexamethasone 4 MG TAB PO SCH ×3 (03:38→09:25)
[2022-11-08 07:20] LABS: Anion Gap 12 mmol/L (10-20); BUN (Urea Nitrogen) 17 mg/dL (9.8-20.1); Calc. Creatinine Clearance 100 mL/min (70-130); Calcium 9.5 mg/dL (7.8-10.44); Carbon Dioxide 26 mmol/L (23-31); Chloride 94 mmol/L (98-107); Estimated GFR 96; Glucose 129 mg/dL (83-110); Sodium 128 mmol/L (136-145)
[2022-11-08] MEDS: Gabapentin 300 MG CAP PO SCH ×3 (09:25→20:40)
[2022-11-08] MEDS: Lisinopril 20 MG TAB PO SCH (09:26)
[2022-11-08] MEDS: Acetaminophen 325 MG TAB PO PRN ×2 (09:27→18:28)
[2022-11-08] MEDS: Senokot S 8.6-50 MG TAB PO SCH ×2 (10:17→20:56)
[2022-11-08] MEDS: Dexamethasone 1 MG TAB PO SCH ×2 (18:26→20:44)
[2022-11-08] MEDS: Simvastatin 5 MG TAB PO SCH (20:41)
[2022-11-08] MEDS: tiZANidine HCl 4 MG TAB PO PRN (20:44)
[2022-11-09] MEDS: Dexamethasone 1 MG TAB PO SCH ×2 (03:29→09:46)
[2022-11-09 05:47] LABS: Anion Gap 14 mmol/L (10-20); BUN (Urea Nitrogen) 19 mg/dL (9.8-20.1); Calc. Creatinine Clearance 104 mL/min (70-130); Calcium 9.7 mg/dL (7.8-10.44); Carbon Dioxide 25 mmol/L (23-31); Chloride 94 mmol/L (98-107); Estimated GFR 97; Glucose 125 mg/dL (83-110); Potassium 3.9 mmol/L (3.5-5.1); Sodium 129 mmol/L (136-145)
[2022-11-09] MEDS: Gabapentin 300 MG CAP PO SCH ×2 (09:46→15:57)
[2022-11-09] MEDS: Senokot S 8.6-50 MG TAB PO SCH (09:47)
[2022-11-09] MEDS: Lisinopril 20 MG TAB PO SCH (09:47)
[2022-11-09] MEDS: tiZANidine HCl 4 MG TAB PO PRN (11:37)
[2022-11-09] MEDS ORDERED: Dexamethasone 1 MG TAB PO SCH (14:00)
[2022-11-09 16:51] VITALS: BP 160/72; TEMP 98.1
[2022-11-10] MEDS ORDERED: Dexamethasone 1 MG TAB PO SCH (14:00)
== END 2022-11-09 18:08 | disposition home health service (06) | DRG 519 ==
LOC: SDC 09:16 → T4-A 11:29 → INTOOBSV 11-04 08:57 → OBSVTOIN 11-04 08:57 → 2SW 11-05 19:59 → OBSVTOIN 11-05 22:55
PROVIDERS: ADMIT Surgery; ATTEND Surgery
PROC: 00NY0ZZ Release Lumbar Spinal Cord, Open Approach (ICD-10-PCS; principal; 2022-11-03)
PROC: 01NB0ZZ Release Lumbar Nerve, Open Approach (ICD-10-PCS; 2022-11-03)
PROC: 01NR0ZZ Release Sacral Nerve, Open Approach (ICD-10-PCS; 2022-11-03)
PROC: 30233N1 Transfusion of Nonautologous Red Blood Cells into Peripheral Vein, Percutaneous Approach (ICD-10-PCS; 2022-11-04)
DX: M48.062 Spinal stenosis, lumbar region with neurogenic claudication (principal); D62 Acute posthemorrhagic anemia; E22.2 Syndrome of inappropriate secretion of antidiuretic hormone; M54.16 Radiculopathy, lumbar region; Z20.822 Contact with and (suspected) exposure to COVID-19; E87.6 Hypokalemia; I48.0 Paroxysmal atrial fibrillation; E78.5 Hyperlipidemia, unspecified; I12.9 Hypertensive chronic kidney disease with stage 1 through stage 4 chronic kidney disease, or unspecified chronic kidney disease; N18.1 Chronic kidney disease, stage 1; M48.07 Spinal stenosis, lumbosacral region; G47.33 Obstructive sleep apnea (adult) (pediatric); Z98.41 Cataract extraction status, right eye; Z98.42 Cataract extraction status, left eye; Z82.3 Family history of stroke
CPT/HCPCS: 36415; 36416; 36430; 80048; 82040; 83735; 83880; 83935; 84300; 84443; 85025; 85027; 85610; 85730; 86850; 86900; 86901; 93005; 93010; 93970; 96374; 96376; G0378; J1100; J1885; J2370; J2405; J2704; J3010; J3370; J3475; J3480; J3490; J7050; J8540; P9016; P9045; Q0169; U0003; U0005

== ENCOUNTER 2023-08-10 09:55 | Outpatient (CLI) | payer MEDICARE | END 2023-08-10 09:56 | disposition home or self-care (01) | LOC: BICMAMMO 09:55 | PROVIDERS: ATTEND Family Medicine | DX: Z12.31 Encounter for screening mammogram for malignant neoplasm of breast (principal); Z13.820 Encounter for screening for osteoporosis; M85.88 Other specified disorders of bone density and structure, other site | CPT/HCPCS: 77063; 77067; 77080 ==